=== PATIENT | female | born 1930 | race Two or more races ===

== ENCOUNTER 2017-10-03 10:27 | Day surgery (SDC) | payer MEDICARE, OTHER ==
--- NOTE | 2017-10-02 23:15 | Pre-Procedure Note/Attestation ---
Pre-Procedure Note/Attestation Complete Prior to Procedure Planned Procedure: left - Removal of catarac and placement of intraocular lens , left eye Procedure Narrative: Removal of cataract and placement of intraocular lens, left eye Indications for Procedure Pre-Operative Diagnosis: cataract, nuclear, left eye Attestation I attest that I discussed the nature of the procedure; its benefits; risks and complications; and alternatives (and the risks and benefits of such alternatives ), prior to the procedure, with the patient (or the patient's legal product support sales representative). I attest that, if there was a reasonable possibility of needing a blood transfusion, the patient (or the patient's legal product support sales representative) was given the [place] Department [employer] standardized written summary, pursuant to the [place] Blood Safety Act ([place] Health and Safety Code # 1645, as amended). I attest that I re-evaluated the patient just prior to the surgery and that there has been no change in the patient's H&P, except as documented below: Rahul Bond MD Oct 02, 2017 23:15
[2017-10-03] VITALS (8 sets, daily range): BP systolic 122–158; BP diastolic 63–80
[~2017-10-03] VITALS: Ht 152.4 cm; Wt 53.5 kg
[~2017-10-03 10:27] MED LIST: BSS 15ml BTL ONE; BSS 500ml btl ONE; Dexamethasone 4mg/ml vial ONE; EPINEPHrine 1mg/1ml Amp ONE; Lidocaine 1% MPF 10mg/ml 5ml ONE; Maxitrol Opth Oint 3.5gm ONE; Povidone-Iodine 5% opth solution ONE; Pred Forte 1% Opth Susp 1ml LEFT EYE ONE; Sodium Hyaluronate 10 mg/ml 0.85ml ONE; Tetracaine 0.5% Opth 4ml Soln ONE
[2017-10-03] MEDS ORDERED: Phenylephrine 10% Opth Soln 5ml ONE (10:50)
[2017-10-03] MEDS ORDERED: Pred Forte 1% Opth Susp 1ml ONE (10:50)
[2017-10-03] MEDS ORDERED: Cyclopentolate 1% Opth Sol 2ml ONE (10:50)
[2017-10-03] MEDS ORDERED: Ciprofloxacin Opth Soln 2.5ml ONE (10:50)
[2017-10-03] MEDS ORDERED: Akten 3.5% 1ml Btl ONE (10:50)
[2017-10-03] MEDS ORDERED: Tropicamide 1% Opth 15ml Soln ONE (10:51)
[2017-10-03] MEDS: Tropicamide 1% Opth 15ml Soln LEFT EYE SCH ×3 (10:58→11:13)
[2017-10-03] MEDS: Phenylephrine 10% Opth Soln 5ml LEFT EYE SCH ×3 (10:58→11:13)
[2017-10-03] MEDS: Ciprofloxacin Opth Soln 2.5ml LEFT EYE SCH ×3 (10:58→11:13)
[2017-10-03] MEDS: Cyclopentolate 1% Opth Sol 2ml LEFT EYE SCH ×3 (10:58→11:12)
[2017-10-03] MEDS: Akten 3.5% 1ml Btl LEFT EYE SCH ×3 (10:59→11:13)
[2017-10-03] MEDS ORDERED: METOPROLOL TART50 M1 ORAL (11:27)
[2017-10-03] MEDS ORDERED: DIOVAN320 MG ORAL (11:27)
[2017-10-03] MEDS ORDERED: SIMVASTATIN10 MG ORAL (11:27)
[2017-10-03] MEDS ORDERED: MAGNESIUM250 M2 PO (11:27)
[2017-10-03] MEDS ORDERED: VESICARE5 MG ORAL (11:27)
[2017-10-03] MEDS ORDERED: SWISS KRISS PO (11:27)
[2017-10-03] MEDS ORDERED: VITAMIN D1000 UNI1 ORAL (11:27)
[2017-10-03] MEDS ORDERED: MOBIC15 MG ORAL (11:27)
[2017-10-03] MEDS ORDERED: NEXIUM40 MG ORAL (11:27)
[2017-10-03] MEDS ORDERED: JANUMET 50-5001 EACH ORAL (11:27)
[2017-10-03] MEDS ORDERED: ALLOPURINOL100 M1 ORAL (11:27)
[2017-10-03] MEDS ORDERED: ASPIR 8181 MG ORAL (11:27)
[2017-10-03] MEDS ORDERED: FISH OIL CAP1000 MG ORAL (11:27)
[2017-10-03] MEDS ORDERED: LEVOTHYROXINE75 MCG ORAL (11:27)
[2017-10-03] MEDS ORDERED: DiphenhydrAMINE 50mg/ml Inj ONE (11:29)
[2017-10-03] MEDS ORDERED: Sterile Water Irrig 1000ml IRRIG ONE (11:45)
[2017-10-03] MEDS ORDERED: Lidocaine 1% MPF 10mg/ml 5ml ONE (11:45)
[2017-10-03] MEDS ORDERED: fentaNYL 100 mcg/2 mL IV ONE (11:45)
[2017-10-03] MEDS ORDERED: NS Irrig 1000ml ONE (11:45)
[2017-10-03] MEDS ORDERED: LR 1000ml ONE (11:45)
[2017-10-03] MEDS ORDERED: Midazolam 2mg/2ml Inj ONE (11:45)
--- NOTE | 2017-10-03 12:16 | Anethesia Preoperative Eval ---
Anesthesia Pre-op PMH/ROS General Date of Evaluation: Oct 03, 2017 Anesthesiologist: Yosef ASA Score: ASA 3 Mallampati Score Class I : Soft palate, uvula, fauces, pillars visible Class II: Soft palate, uvula, fauces visible Class III: Soft palate, base of uvula visible Class IV: Only hard plate visible Mallampati Classification: Class II Surgeon: Varun Diagnosis: Left cataract Surgical Procedure: Left cataract extraction with IOL Anesthesia History: none Family History: no anesthesia problems Allergies: Coded Allergies: No Known Allergies (Unverified , 10/02/17) Medications: see eMAR Past Medical History Cardiovascular: Reports: HTN, other - HLD, Denies: CAD, IA, valve dz, arrhythmia Pulmonary: Reports: asthma, Denies: COPD, [place], other Gastrointestinal/Genitourinary: Denies: GERD, CRI, ESRD, other Neurologic/Psychiatric: Reports: depression/anxiety, Denies: dementia, CVA, TIA, other Endocrine: Reports: DM, hypothyroidism, Denies: steroids, other HEENT: Denies: cataract (L), cataract (R), glaucoma, [place] (L), [place] (R), other Hematology/Immune: Denies: anemia, DVT, bleeding disorder, other Musculoskeletal/Integumentary: Reports: OA, Denies: RA, DJD, DDD, edema, other Anesthesia Pre-op Phys. Exam Physician Exam Last Vital Signs Date Time Temp Pulse Resp B/P (MAP) Pulse Ox O2 Delivery O2 Flow Rate FiO2 10/03/17 11:07 97.1 59 17 153/70 97 Room Air Constitutional: NAD Cardiovascular: RRR Respiratory: CTA Airway Exam Mallampati Score: Class II MO: limited ROM: limited Anesthesia Pre-op A/P Labs see chart Studies Pre-op Studies: EKG - sr Risk Assessment & Plan Assessment: ASA II Plan: MAC Status Change Before Surgery: No Pre-Antibiotics Drug: N/A VAHE MARTIN M.D. Oct 03, 2017 12:16
--- NOTE | 2017-10-03 12:17 | Immediate Post-Op Evaluation ---
Immediate Post-Op Evalulation Immediate Post-Op Evalulation Procedure: Left cataract extraction with IOL Date of Evaluation: Oct 03, 2017 Time of Evaluation: 13:11 IV Fluids: 400 Blood Products: 0 Estimated Blood Loss: 0 Urinary Output: 0 Blood Pressure Systolic: 158 Blood Pressure Diastolic: 67 Pulse Rate: 59 Respiratory Rate: 16 O2 Sat by Pulse Oximetry: 99 Temperature (Fahrenheit): 97.1 Pain Score (1-10): 0 Nausea: No Vomiting: No Complications 0 Patient Status: awake, reacts, patent, none Hydration Status: adequate Drug: N/A VAHE MARTIN M.D. Oct 03, 2017 12:17
--- NOTE | 2017-10-03 12:23 | 48 Hour Post Anesthesia Eval ---
Post Anesthesia Evaluation Procedure: Left cataract extraction with IOL Date of Evaluation: Oct 03, 2017 Airway: patent Nausea: No Vomiting: No Pain Intensity: 0 Hydration Status: adequate Cardiopulmonary Status: at baseline Mental Status/LOC: patient returned to baseline Post-Anesthesia Complications: 0 Follow-up care needed: ready to discharge VAHE MARTIN M.D. Oct 03, 2017 12:23
[2017-10-03] MEDS ORDERED: Lidocaine 4% Amp ONE (13:08)
--- NOTE | 2017-10-03 13:19 | Brief Operative Note ---
Immediate Post Operative Note Operative Note Pre-op Diagnosis: cataract, combined, left eye Procedure: phaco pc iol, OS Post-op Diagnosis: same as pre-op Surgeon: Nga Bond MD Additional Surgeons: none Anesthesia: local, MAC Specimen: none Complications: none Fluids: as noted Estimated Blood Loss: minimal Implant(s) used?: Yes - benton [id number] Rahul Bond MD Oct 03, 2017 13:19
[2017-10-03] MEDS ORDERED: Sodium Hyaluronate 10 mg/ml 0.85ml ONE (14:29)
--- NOTE | 2017-10-03 23:45 | Operative Note - Dictated ---
DATE OF OPERATION: 10/03/2017 SURGEON: Rahul Bond M.D. 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 ANESTHESIOLOGIST: Dr. Gandhi. ANESTHESIA: Local/standby/monitored anesthesia care. PREOPERATIVE DIAGNOSIS: Cataract, combined, left eye. POSTOPERATIVE DIAGNOSIS: Cataract, combined, left eye. PROCEDURE: 1. Phacoemulsification of cataract, left eye. 2. Placement of posterior chamber intraocular lens, left eye (model Ledezma, ZCB00 power 21.5). SPECIMENS: None. COMPLICATIONS: None. INDICATIONS FOR SURGERY: The patient has had the painless progressive decrease in visual acuity in left eye secondary to cataract. The patient understands the risks of surgery including infection, bleeding, need for further surgery, loss of vision, no improvement in vision, loss of the eye, loss of life, glaucoma, and retinal detachment, understands these risks and elects to proceed with surgery. FINDINGS: The patient had a +2 to 3 anterior subcapsular cataract, which was very central. OPERATIVE NOTE: After informed consent was obtained, the patient was brought into the operating room and placed in supine position. Cardiac and respiratory monitors were attached. A time-out was performed and all criteria were met and everyone in the room agreed. The left eye was then draped and prepped in sterile manner for ocular surgery. A lid speculum was placed in the eye. A 1% lidocaine preservative-free was injected at the approximate 2 o'clock limbus. A conjunctiva peritomy from approximately 1:30 to 3 o'clock was made and dissected posteriorly. Hemostasis was maintained with bipolar cautery. A 2.6 mm limbal incision centered at approximately 2 o'clock and dissected anteriorly was made. A paracentesis was made at approximately 5:30 and Shugarcaine was injected into the anterior chamber followed by Healon. The anterior chamber was then entered using a 2.6 mm keratome through the limbal incision. An anterior capsulorrhexis was then performed. Hydrodissection and hydrodelineation of the lens was then performed. The lens was then phacoemulsified using divide and conquer four-quadrant technique. Residual cortical material was then aspirated with an I/A tip (note, two tips were 90 degree-angled tips and had to wait until they obtained a 45-degree tip to start the inspiration and aspiration of the cortical material). Once the cortical material was aspirated, Healon was injected into the anterior chamber. The lens was taken from its package and placed into the cartridge and there was difficulty pushing the lens through the cartridge. The pusher of the handle actually over on top of the lens and the lens was not injected into the eye, but it was tested prior to putting the tip in the eye and this was found to be happening. We were able to then extend the pusher through the lens , the lens was damaged and at this point, still had not even been placed in the eye yet. The cartridge and the damaged lens were placed aside. A new lens was obtained and it was held in placed into the new cartridge. The lens was able to be pushed through gently in the correct manner. The tip of the handle was then placed through the limbal incision. The lens was injected into the capsular bag. The trailing haptic still was outside of the wound and this was gently placed into the capsular bag. The capsular bag remained intact throughout the entire procedure. The lens was rotated such that it was in the 180 degree meridian. Healon was aspirated from the anterior chamber and capsular bag. The optic and both haptics were visualized and noted to be within the capsular bag. There was no part of the wound that was prolapsed anteriorly or posteriorly. Healon was then aspirated from the anterior chamber and capsular bag. One 10-0 nylon interrupted suture was then placed through the wound. The knot was rotated and buried. Care was taken during the entire procedure not to touch the endothelium. The wounds were checked and hydrated closed both paracentesis and the limbal wound. The wounds were checked and found to be watertight. The conjunctiva was then closed with forceps cautery. The lid speculum and drapes removed from the eye and drops of ciprofloxacin and Pred Forte were applied to the eye followed by Maxitrol ointment and then a shield. The patient tolerated the procedure well and left the operating room in awake, alert and stable condition. Note, at the beginning of the case, the patient was moving her eye and a 6-0 silk suture was placed through the superior rectus. This would help stabilize the eye. At the end the case, the 6-0 silk suture was removed. Rahul Bond M.D. DR: LIDIA JOB#: [id number] CC:
== END 2017-10-03 14:10 | disposition home or self-care (01) ==
LOC: SUR 10:27
DX: H25.032 Anterior subcapsular polar age-related cataract, left eye (principal); I10 Essential (primary) hypertension; E11.9 Type 2 diabetes mellitus without complications; Z87.442 Personal history of urinary calculi; E03.9 Hypothyroidism, unspecified; F41.9 Anxiety disorder, unspecified; F32.9 Major depressive disorder, single episode, unspecified; M19.90 Unspecified osteoarthritis, unspecified site
CPT/HCPCS: 66984; 82962; J0171; J1100; J1200; J2250; J3010; J7120; V2632; 94003; 94150